=== PATIENT | female | born 1995 | race Caucasian/White ===

== ENCOUNTER 2019-07-03 15:57 | Emergency (ER) | payer BC ==
[2019-07-03 16:22] VITALS: BP 123/82
--- NOTE | 2019-07-03 16:27 | UC ---
Complaint Female HPI - HPI Summary HPI Summary: 23-year-old female presenting with complaint of right sided labial minora swelling that she states she woke up this morning. Patient states she had intercourse last night and it was not there at that time. Patient states she did note discomfort while having intercourse and states that was prolonged intercourse and that she became "very dry during it." Denied chest drainage or bleeding from the area. States it is not really that painful. Denies dysuria. Denies hematuria. Denies abnormal discharge. Patient states she has 2 partners currently and is not in a monogamous relationship with either. Unsure if exposed to STDs but would like testing today. Denies abdominal pain. Denies fever and chills. Patient states she is "very anxious and hyperventilating" as she states she has had "an STD scare in the past." Patient has IUD and states she does not get normal periods with it. Patient states she has spotting sometimes. - History Of Current Complaint Chief Complaint: [facility]CGU Stated Complaint: PERSONAL Hx Obtained From: Patient Hx Last Menstrual Period: IUD Pain Intensity: 4 Pain Scale Used: 0-10 Numeric - Allergies/Home Medications Allergies/Adverse Reactions: Allergies Allergy/AdvReac Type Severity Reaction Status Date / Time No Known Allergies Allergy Verified 07/03/19 16:22 Home Medications: Home Medications Ibuprofen TAB* [Advil TAB*] 200 mg PO PRN 07/03/19 [History] Iud* 07/03/19 [History] Methylphenidate HCl [Concerta] 36 mg PO DAILY 07/03/19 [History Confirmed ] PMH/Surg Hx/FS Hx/Imm Hx Psychological History: Anxiety - Surgical History Surgical History: None - Social History Alcohol Use: Occasionally Substance Use Type: None Smoking Status (MU): Never Smoked Tobacco Review of Systems All Other Systems Reviewed And Are Negative: Yes Constitutional: Positive: Negative Respiratory: Positive: Negative Cardiovascular: Positive: Negative Gastrointestinal: Positive: Negative Genitourinary: Positive: Other - swollen right labia. Negative: Dysuria, Hematuria, Vaginal/Penile Burning, Vaginal/Penile Itching, Vaginal/Penile Discharge, Vaginal/Penile Pain, Vaginal/Penile Tenderness, Ulceration/Lesion, Abnormal Bleeding Musculoskeletal: Positive: Negative Psychological: Positive: Anxious Physical Exam Triage Information Reviewed: Yes Appearance: Well-Appearing, No Pain Distress, Well-Nourished Vital Signs: Initial Vital Signs Temp 98.2 F 07/03/19 16:17 Pulse 98 07/03/19 16:17 Resp 24 07/03/19 16:17 BP 123/82 07/03/19 16:17 Pulse Ox 100 07/03/19 16:17 Vital Signs Reviewed: Yes Eyes: Positive: Conjunctiva Clear ENT: Positive: Hearing grossly normal Neck: Positive: Supple Respiratory: Positive: No respiratory distress, No accessory muscle use Cardiovascular Exam: Other - skin reflects adequate perfusion Pelvic Exam: Positive: Speculum Exam Normal, Bimanual Exam Normal, No Cerv. Motion Tender, No Masses, Blood - scant blood noted from cervical os. Negative : External Exam Normal - edema of right labia minora, no TTP, no drainage, no bleeding, no significant erythema warmth or red streaking, Cervicitis Neurological: Positive: Alert Psychological: Positive: Age Appropriate Behavior, Other: - anxious Complaint Female Dx - Course Course Of Treatment: I discussed likely mechanical trauma to the labia from sexual intercourse without enough lubrication causing swelling. Instructed to continue to apply cool compresses or ice to the area to help reduce swelling. Instructed to refrain from sexual activity until symptoms have resolved and she has received follow-up with her cupola melter next week. Patient states she has a gynecology appointment already scheduled for next week and I instructed to make sure she follows up with that appointment for reevaluation. I informed the patient that she was tested for yeast, BV, Trichomonas, gonorrhea, chlamydia and that should be informed with any positive results. Patient voiced understanding and agreed with the treatment plan. - Differential Dx/Diagnosis Provider Diagnosis: Labial swelling Discharge ED - Sign-Out/Discharge Documenting (check all that apply): Patient Departure All imaging exams completed and their final reports reviewed: No Studies - Discharge Plan Condition: Stable Disposition: HOME Patient Education Materials: Sexually Transmitted Diseases (ED), Condom Use (ED ), Safe Sex (ED) Referrals: No Primary Care Phys,NOPCP [Primary Care Provider] - Additional Instructions: You have received testing for yeast, bacterial vaginosis, trichomonas, gonorrhea , and chlamydia today. You will be notified only with any positive results. Your symptoms are likely caused by irritation/trauma to the area. Continue to apply ice to help alleviate swelling. Refrain from sexual activity until symptoms have fully resolved. Be sure to attend your appointment with your cupola melter next week to recheck symptoms. - Billing Disposition and Condition Condition: STABLE Disposition: Home - Attestation Statements Provider Attestation: This patient was not seen by me. I was available for consult. Chart reviewed. ADRIANNA
--- NOTE | 2019-07-04 17:38 | ED ---
Progress - Progress Note Progress Note: pt is POSITIVE FOR [facility], PLEASE CALL PT TO [facility] [employer] RE[facility]S MEDICATION FOR BACTERIAL VAGINAOSIS Course/Dx - Diagnoses Provider Diagnoses: Labial swelling Discharge ED - Sign-Out/Discharge Documenting (check all that apply): Post-Discharge Follow Up All imaging exams completed and their final reports reviewed: No Studies - Discharge Plan Condition: Stable Disposition: HOME Patient Education Materials: Sexually Transmitted Diseases (ED), Condom Use (ED ), Safe Sex (ED) Referrals: No Primary Care Phys,NOPCP [Primary Care Provider] - Additional Instructions: You have received testing for yeast, bacterial vaginosis, trichomonas, gonorrhea , and chlamydia today. You will be notified only with any positive results. Your symptoms are likely caused by irritation/trauma to the area. Continue to apply ice to help alleviate swelling. Refrain from sexual activity until symptoms have fully resolved. 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 - Billing Disposition and Condition Condition: STABLE Disposition: Home
[2019-07-06 12:44] LABS: Trichomonas vag NAA Female Negative (Negative)
[2019-07-06 12:49] LABS: Chlamydia trachomatis NAA Negative (Negative); Neisseria gonorrhoeae (GC) NAA Negative (Negative)
== END 2019-07-03 17:35 | disposition home or self-care (01) ==
LOC: UCEAST 15:57
DX: N76.89 Other specified inflammation of vagina and vulva (principal); F41.9 Anxiety disorder, unspecified; Z79.899 Other long term (current) drug therapy
CPT/HCPCS: 81003; 84702; 87480; 87491; 87510; 87591; 87661; 99212; G0463